=== PATIENT | female | born 1950 | race American Indian/Alaskan Native ===

== ENCOUNTER 2017-06-02 15:00 | Emergency (ER) | payer MEDICARE ==
--- NOTE | 2017-06-02 22:20 | Emergency Department Report ---
HPI - General Chief Complaint: Psych Time Seen by Provider: 06/02/17 22:05 - HPI HPI: Room 17 The patient is a 66-year-old female presenting with a chief complaint of schizophrenia. History is obtained by the patient's daughter (Mrs. Davina Lawson [phone]). The daughter states the patient has not had any of her psychiatric medications since she was discharged from [facility] early April. The patient is currently in an assisted living facility. The daughter states the last time she saw the patient and her normal state of health was proximal one month ago. Patient went to check on the patient today stated she was not behaving correctly. The dorsalis the patient seen worried and Repeating things like "the world is coming to an end" and "and "I've been doing wrong." The daughter states the patient did not want today because she thought something bad would happen to the baby if she touched it. The patient denies complaints. Patient denies suicidal or homicidal ideation. Patient denies auditory or visual hallucinations Location: Mental state Duration: Up to 1 month Quality: Paranoid Severity: Moderate Modifying factors: [see above] Context: [see above] Mode of transportation: [not driving] ED Past Medical Hx - Past Medical History Previous Medical History?: Yes Hx Hypertension: Yes Hx Psychiatric Treatment: Yes (schizophrenia, depression, psychosis) - Surgical History Past Surgical History?: No - Family History Family history: no significant - Social History Smoking Status: Current Every Day Smoker Substance Use Type: None ED Review of Systems ROS: Stated complaint: PSYCH EVAL Other details as noted in HPI Comment: All other systems reviewed and negative Constitutional: denies: chills, fever Eyes: denies: eye pain, eye discharge, vision change ENT: denies: ear pain, throat pain Respiratory: denies: cough, shortness of breath, wheezing Cardiovascular: denies: chest pain, palpitations Endocrine: no symptoms reported Gastrointestinal: denies: abdominal pain, nausea, diarrhea Genitourinary: denies: urgency, dysuria, discharge Musculoskeletal: denies: back pain, joint swelling, arthralgia Skin: denies: rash, lesions Neurological: denies: headache, weakness, paresthesias Psychiatric: denies: auditory hallucinations, visual hallucinations, homicidal thoughts, suicidal thoughts Hematological/Lymphatic: denies: easy bleeding, easy bruising Physical Exam - Physical Exam Vital Signs: Vital Signs 06/02/17 15:05 Temperature 97.9 F Pulse Rate 68 Respiratory 20 Rate Blood Pressure 112/76 O2 Sat by Pulse 98 Oximetry Physical Exam: GENERAL: The patient is well-developed well-nourished female lying on stretcher not appearing to be in acute distress. Flat Affect HEENT: Normocephalic. Atraumatic. Extraocular motions are intact. Patient has moist mucous membranes. NECK: Supple. Trachea midline CHEST/LUNGS: Clear to auscultation. There is no respiratory distress noted. HEART/CARDIOVASCULAR: Regular. There is no tachycardia. There is no gallop rub or murmur. ABDOMEN: Abdomen is soft, nontender. Patient has normal bowel sounds. There is no abdominal distention. SKIN: There is no rash. There is no edema. There is no diaphoresis. NEURO: The patient is awake, and alert. The patient is cooperative. The patient has no focal neurologic deficits. The patient has normal speech MUSCULOSKELETAL: There is no evidence of acute injury. ED Course Vital Signs 06/02/17 15:05 Temperature 97.9 F Pulse Rate 68 Respiratory 20 Rate Blood Pressure 112/76 O2 Sat by Pulse 98 Oximetry ED Medical Decision Making - Lab Data Result diagrams: 06/03/17 11:40 06/03/17 11:40 - Differential Diagnosis schizophrenia Critical care attestation.: If time is entered above; I have spent that time in minutes in the direct care of this critically ill patient, excluding procedure time. ED Disposition Clinical Impression: Schizophrenia Disposition: DC/TX-65 PSY HOSP/PSY UNIT Is pt being admited?: No Does the pt Need Aspirin: No Condition: Stable Referrals: PRIMARY CAREMD [Primary Care Provider] - 3-5 Days
--- NOTE | 2017-06-03 11:37 | Consultation ---
History of Present Illness - Reason for Consult Consult date: 06/03/17 Reason for consult: Mental Health Evaluation Requesting physician: VALORIE REARDON - Chief Complaint Chief complaint: "Patient refuse to talk" - History of Present Psychiatric Illness The patient is a 66-year-old female presenting with a chief complaint of schizophrenia. Today patient is uncooperative and refused to talk. When I tried to introduce myself, patient pulled the blanket over her head. Patient could be experiencing paranoia at this time. Patient has refused labs on admission to hospital. Per the ER note, her daughter (Mrs. Davina Lawson [phone]) states the patient has not had taken any of her psychiatric medications since she was discharged from [facility] early April 2017. No gestures of SI/HI's. Medications and Allergies Allergies Allergy/AdvReac Type Severity Reaction Status Date / Time No Known Allergies Allergy Verified 06/02/17 22:51 Past psychiatric history - Past Medical History Past Medical History: hypertension, other (Per ER note) Past Surgical History: Other (Unable to obtain) - past Psychiatric treatment and history psychiatric treatment history: Unable to obtain psy or fam psy hx. - Social History Social history: other (Resides at an assiste living facility) Mental Status Exam - Vital signs Last Vital Signs Temp 97.9 F 06/02/17 15:05 Pulse 65 06/02/17 22:51 Resp 15 06/02/17 22:51 BP 107/66 06/02/17 22:51 Pulse Ox 95 06/02/17 22:51 - Exam Narrative exam: Unable to complete MSE. Could not obtain a psy hx or a fam psy hx from patient. Results Result Diagrams: 06/03/17 11:40 06/03/17 11:40 All other labs normal. Assessment and Plan Assessment and plan: Impression: Historical Dx: Schizophrenia. Today patient is uncooperative and refused to talk. Patient possibly experiencing paranoia. DDx: Schizoaffective DO, Unspecified Psychotic DO Recommendation/Plan: Continue 1013. Gather collateral information to determine proper treatment.
[2017-06-03 11:40] LABS: Urine Drugs of Abuse Note Disclamer
[2017-06-03 12:06] LABS: Bacteria,Urine 1+ /HPF (Negative); Bilirubin,Urine NEG (Negative); Blood,Urine SM (Negative); Ketones,Urine TR mg/dL (Negative); Leukocyte Esterase,Urine LG (Negative); Mucus,Urine 3+ /HPF; Nitrite,Urine NEG (Negative)
[2017-06-03 12:09] LABS: Anion Gap 20 mmol/L; Blood Urea Nitrogen 16 mg/dL (7-17); Calcium 9.7 mg/dL (8.4-10.2); Carbon Dioxide 26 mmol/L (22-30); Chloride 98.5 mmol/L (98-107); Glucose 114 mg/dL (65-100); Potassium 4.2 mmol/L (3.6-5.0); Sodium 140 mmol/L (137-145)
[2017-06-03 12:12] LABS: Basophils % (Auto) 0.6 % (0.0-1.8); Eosinophils % (Auto) 0.9 % (0.0-4.3); Hematocrit 46.6 % (30.3-42.9); Mean Corpuscular HGB Conc 32 % (30-34); Mean Corpuscular Volume 75 fl (79-97); Platelet Count 149 K/mm3 (140-440); Red Blood Count 6.19 M/mm3 (3.65-5.03); Red Cell Distribution Width 14.9 % (13.2-15.2); White Blood Count 7.6 K/mm3 (4.5-11.0)
[2017-06-03 12:16] LABS: Mean Corpuscular Hemoglobin 24 pg (28-32)
[2017-06-03] MEDS ORDERED: MACROBID PO SCH (13:00)
[2017-06-03 16:36] VITALS: BP 105/70
== END 2017-06-03 16:46 ==
LOC: ED 15:00
DX: F20.9 Schizophrenia, unspecified (principal); I10 Essential (primary) hypertension; F32.9 Major depressive disorder, single episode, unspecified; F17.200 Nicotine dependence, unspecified, uncomplicated
CPT/HCPCS: 36415; 80048; 80307; 81001; 85025; 99285; G0480; 80320

== ENCOUNTER 2017-06-05 20:08 | Emergency (ER) | payer MEDICARE ==
[2017-06-05] MEDS ORDERED: NACL 0.9% 1000 ML 1,000 ML IV ONE (22:08)
[2017-06-05 22:33] VITALS: BP 105/62
[2017-06-05 23:10] LABS: Basophils % (Auto) 0.6 % (0.0-1.8); Eosinophils % (Auto) 0.8 % (0.0-4.3); Hematocrit 38.8 % (30.3-42.9); Hemoglobin 12.5 gm/dl (10.1-14.3); Mean Corpuscular HGB Conc 32 % (30-34); Mean Corpuscular Hemoglobin 25 pg (28-32); Mean Corpuscular Volume 77 fl (79-97); Platelet Count 119 K/mm3 (140-440); Red Blood Count 5.08 M/mm3 (3.65-5.03); Red Cell Distribution Width 15.3 % (13.2-15.2); White Blood Count 6.5 K/mm3 (4.5-11.0)
[2017-06-05 23:27] LABS: Creatine Kinase MB 7.2 ng/mL (0.0-4.0)
[2017-06-05 23:28] LABS: Anion Gap 16 mmol/L; BUN/Creatinine Ratio 16.25; Blood Urea Nitrogen 13 mg/dL (7-17); Calcium 8.7 mg/dL (8.4-10.2); Carbon Dioxide 27 mmol/L (22-30); Chloride 101.2 mmol/L (98-107); Creatine Kinase 150 units/L (30-135); Glucose 89 mg/dL (65-100); Sodium 140 mmol/L (137-145)
--- NOTE | 2017-06-05 23:51 | Emergency Department Report ---
- General Chief complaint: Weakness Stated complaint: DEHYDRATION/LOW BP Time Seen by Provider: 06/05/17 22:06 Source: patient, EMS Mode of arrival: Stretcher Limitations: No Limitations - History of Present Illness Initial comments: 66-year-old female with a past medical history hypertension, schizophrenia, psychosis, and pacemaker, and depression presents to the hospital with for possible dehydration and hypotension. Patient was unable to provide history of present illness but states she has no complaints at this time. As per [facility] system progress record recorded by RN Patient lost her balance and was on the floor left side. No injury was noted. He has no reports of LOC. Vital signs at this time were 82/50, 90/50, heart rate 68, temp 97.4, and respiratory rate 18. Patient apparently has not been eating or drinking much and refusing her medications most of the time during her psychiatric hospital stay. Patient was sent to the hospital for evaluation. Patient states her pain level is 0. - Related Data Allergies Allergy/AdvReac Type Severity Reaction Status Date / Time No Known Allergies Allergy Verified 06/02/17 22:51 ED Review of Systems ROS: Stated complaint: DEHYDRATION/LOW BP Other details as noted in HPI Comment: All other systems reviewed and negative Other: Constitutional: No fevers chills Eyes: No eye pain visual changes ENT: No ear pain or throat pain Neck: Denies pain Respiratory: Denies cough wheezing shortness of breath Cardiovascular: Denies chest pain, palpitations, syncope GI: Denies abdominal pain, nausea, vomiting, diarrhea : Denies dysuria Musculoskeletal: Denies back pain Skin: Denies rash, lesions, erythema Neurologic: Denies headache, numbness, weakness ED Past Medical Hx - Past Medical History Hx Hypertension: Yes Hx Psychiatric Treatment: Yes (schizophrenia, depression, psychosis) - Surgical History Past Surgical History?: Yes Additional Surgical History: Pacemaker - Social History Smoking Status: Former Smoker Substance Use Type: None ED Physical Exam - General Limitations: No Limitations - Other Other exam information: General: No limitations, patient is alert in no acute distress Head exam: Atraumatic, normocephalic Eyes exam: Normal appearance, pupils equal reactive to light, extraocular movements intact ENT: Moist mucous membrane, normal oropharynx Neck exam: Normal inspection, full range of motion, no meningismus nontender Respiratory exam: Clear to auscultation bilateral, no wheezes, rales, crackles Cardiovascular: Normal rate and rhythm, normal heart sounds Abdomen: Soft, nondistended, and nontender, with normal bowel sounds, no rebound, or guarding Extremity: Full range of motion normal inspection no deformity Back: Normal Inspection, full range of motion, no tenderness Neurologic: Alert, oriented x3, cranial nerves intact, no motor or sensory deficit Psychiatric: normal affect, normal mood Skin: Warm, dry, intact ED Course Vital Signs 06/05/17 06/05/17 06/05/17 20:54 21:00 21:10 Temperature Pulse Rate 60 60 Respiratory 10 L 14 12 Rate Blood Pressure 105/62 105/62 O2 Sat by Pulse 100 100 Oximetry 06/05/17 06/05/17 06/05/17 21:20 21:24 22:22 Temperature 97.6 F Pulse Rate 60 60 Respiratory 13 15 Rate Blood Pressure 105/62 O2 Sat by Pulse 100 99 Oximetry 06/05/17 23:29 Temperature Pulse Rate Respiratory 18 Rate Blood Pressure O2 Sat by Pulse 98 Oximetry - Reevaluation(s) Reevaluation #1: 06/05/17 23:51 With the status were unremarkable. Patient received 1 L normal saline prior to arrival additional liter was given in the ED. ED Medical Decision Making - Lab Data Result diagrams: 06/05/17 22:48 06/05/17 22:48 Lab Results 06/05/17 06/05/17 06/06/17 Range/Units 22:48 22:48 00:51 WBC 6.5 (4.5-11.0) K/mm3 RBC 5.08 H (3.65-5.03) M/mm3 Hgb 12.5 (10.1-14.3) gm/dl Hct 38.8 D (30.3-42.9) % MCV 77 L (79-97) fl MCH 25 L (28-32) pg MCHC 32 (30-34) % RDW 15.3 H (13.2-15.2) % Plt Count 119 L (140-440) K/mm3 Lymph % (Auto) 25.9 (13.4-35.0) % [place] % (Auto) 8.4 H (0.0-7.3) % Eos % (Auto) 0.8 (0.0-4.3) % Baso % (Auto) 0.6 (0.0-1.8) % Lymph # 1.7 (1.2-5.4) K/mm3 [place] # 0.5 (0.0-0.8) K/mm3 Eos # 0.1 (0.0-0.4) K/mm3 Baso # 0.0 (0.0-0.1) K/mm3 Seg Neutrophils % 64.3 (40.0-70.0) % Seg Neutrophils # 4.1 (1.8-7.7) K/mm3 Sodium 140 (137-145) mmol/L Potassium 4.0 (3.6-5.0) mmol/L Chloride 101.2 (98-107) mmol/L Carbon Dioxide 27 (22-30) mmol/L Anion Gap 16 mmol/L BUN 13 (7-17) mg/dL Creatinine 0.8 (0.7-1.2) mg/dL Estimated GFR > 60 ml/min BUN/Creatinine Ratio 16.25 % Glucose 89 (65-100) mg/dL Calcium 8.7 (8.4-10.2) mg/dL Magnesium 1.70 (1.7-2.3) mg/dL Total Creatine Kinase 150 H (30-135) units/L CK-MB (CK-2) 7.2 H (0.0-4.0) ng/mL CK-MB (CK-2) Rel Index 4.8 H (0-4) Troponin T < 0.010 (0.00-0.029) ng/mL Urine Color Yancy (Yellow) Urine Turbidity Clear (Clear) Urine pH 5.0 (5.0-7.0) Ur Specific [place] 1.021 (1.003-1.030) Urine Protein <15 mg/dl (Negative) mg/dL Urine Glucose (UA) Neg (Negative) mg/dL Urine Ketones Tr (Negative) mg/dL Urine Blood Neg (Negative) Urine Nitrite Neg (Negative) Urine Bilirubin Neg (Negative) Urine Urobilinogen < 2.0 (<2.0) mg/dL Ur Leukocyte Esterase Tr (Negative) Urine WBC (Auto) 2.0 (0.0-6.0) /HPF Urine RBC (Auto) 3.0 (0.0-6.0) /HPF U Epithel Cells (Auto) < 1.0 (0-13.0) /HPF Hyaline Casts 1 /LPF Urine Mucus 3+ /HPF Urine Opiates Screen Urine Methadone Screen Ur Barbiturates Screen Ur Phencyclidine Scrn Ur Amphetamines Screen U Benzodiazepines Scrn Urine Cocaine Screen U Marijuana (THC) Screen Drugs of Abuse Note 06/06/17 Range/Units 00:51 WBC (4.5-11.0) K/mm3 RBC (3.65-5.03) M/mm3 Hgb (10.1-14.3) gm/dl Hct (30.3-42.9) % MCV (79-97) fl MCH (28-32) pg MCHC (30-34) % RDW (13.2-15.2) % Plt Count (140-440) K/mm3 Lymph % (Auto) (13.4-35.0) % [place] % (Auto) (0.0-7.3) % Eos % (Auto) (0.0-4.3) % Baso % (Auto) (0.0-1.8) % Lymph # (1.2-5.4) K/mm3 [place] # (0.0-0.8) K/mm3 Eos # (0.0-0.4) K/mm3 Baso # (0.0-0.1) K/mm3 Seg Neutrophils % (40.0-70.0) % Seg Neutrophils # (1.8-7.7) K/mm3 Sodium (137-145) mmol/L Potassium (3.6-5.0) mmol/L Chloride (98-107) mmol/L Carbon Dioxide (22-30) mmol/L Anion Gap mmol/L BUN (7-17) mg/dL Creatinine (0.7-1.2) mg/dL Estimated GFR ml/min BUN/Creatinine Ratio % Glucose (65-100) mg/dL Calcium (8.4-10.2) mg/dL Magnesium (1.7-2.3) mg/dL Total Creatine Kinase (30-135) units/L CK-MB (CK-2) (0.0-4.0) ng/mL CK-MB (CK-2) Rel Index (0-4) Troponin T (0.00-0.029) ng/mL Urine Color (Yellow) Urine Turbidity (Clear) Urine pH (5.0-7.0) Ur Specific [place] (1.003-1.030) Urine Protein (Negative) mg/dL Urine Glucose (UA) (Negative) mg/dL Urine Ketones (Negative) mg/dL Urine Blood (Negative) Urine Nitrite (Negative) Urine Bilirubin (Negative) Urine Urobilinogen (<2.0) mg/dL Ur Leukocyte Esterase (Negative) Urine WBC (Auto) (0.0-6.0) /HPF Urine RBC (Auto) (0.0-6.0) /HPF U Epithel Cells (Auto) (0-13.0) /HPF Hyaline Casts /LPF Urine Mucus /HPF Urine Opiates Screen Presumptive negative Urine Methadone Screen Presumptive negative Ur Barbiturates Screen Presumptive negative Ur Phencyclidine Scrn Presumptive negative Ur Amphetamines Screen Presumptive negative U Benzodiazepines Scrn Presumptive negative Urine Cocaine Screen Presumptive negative U Marijuana (THC) Screen Presumptive negative Drugs of Abuse Note Disclamer - EKG Data -: EKG Interpreted by Me (sinus, right bundle-branch block, positive pacemaker) - EKG Data When compared to previous EKG there are: previous EKG unavailable - Medical Decision Making Patient received 2 L of normal saline ED. Patient did eat something while in the ED. Cause of transient hypotension likely related to poor by mouth intake which improved with IV hydration. No signs of acute infection. Patient does have a mild decrease in her platelet count compared to several days ago. This would need continued monitoring as outpatient. - Differential Diagnosis dehydration, near syncope, arrhythmia, anemia Critical Care Time: No Critical care attestation.: If time is entered above; I have spent that time in minutes in the direct care of this critically ill patient, excluding procedure time. ED Disposition Clinical Impression: Schizophrenia, Poor fluid intake, Dehydration, Thrombocytopenia Disposition: DC-01 TO HOME OR SELFCARE Is pt being admited?: No Condition: Stable Instructions: Dehydration (ED), Schizophrenia (ED), Thrombocytopenia (ED) Additional Instructions: Platelets decreased slightly compared to previous. Please continue to monitor as an outpatient. Time of Disposition: 03:15 (back to inpatient psych)
[2017-06-06 01:31] LABS: Urine Drugs of Abuse Note Disclamer
[2017-06-06 01:57] LABS: Bilirubin,Urine NEG (Negative); Blood,Urine NEG (Negative); Ketones,Urine TR mg/dL (Negative); Leukocyte Esterase,Urine TR (Negative); Mucus,Urine 3+ /HPF; Nitrite,Urine NEG (Negative); Protein,Urine <15 mg/dL mg/dL (Negative); Urobilinogen,Urine < 2.0 mg/dL (<2.0)
== END 2017-06-06 06:38 | disposition home or self-care (01) ==
LOC: ED 20:08
DX: E86.0 Dehydration (principal); D69.6 Thrombocytopenia, unspecified; F20.9 Schizophrenia, unspecified; F32.9 Major depressive disorder, single episode, unspecified; Z95.818 Presence of other cardiac implants and grafts; Z87.891 Personal history of nicotine dependence
CPT/HCPCS: 36415; 80048; 80307; 81001; 82550; 82553; 83735; 84484; 85025; 87086; 93005; 93010; 96360; 99284; J7030